=== PATIENT | female | born 1970 | race Caucasian/White ===

== ENCOUNTER 2024-12-14 18:18 | Emergency (ER) | payer BC, SELFPAY ==
[2024-12-14 18:19] VITALS: BP 128/88; PULSE 73; RESP 16; TEMP 36.6; O2SAT 98; BMI 39.9
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
--- NOTE | 2024-12-14 19:05 | RAD_ITS ---
PROCEDURE: KNEE 1 OR 2 VIEWS 12/14/2024 REASON FOR EXAM: PAIN TECHNIQUE: Procedure Code: RADK Modality: DX Procedure: KNEE 1 OR 2 VIEWS COMPARISON: none RAD/Knee 1 or 2 Views IMPRESSION: Question lateral tibial plateau defect/fracture. No dislocations. Mild degenerative changes. No large joint effusion. Moderate diffuse soft tissue edema. no radiographic foreign body. Reading Location: [id number]
[2024-12-14 21:39] VITALS: BP 117/66; PULSE 70; RESP 16; TEMP 36.7; O2SAT 98
== END 2024-12-14 22:02 | disposition home or self-care (01) ==
PROVIDERS: Emergency Provider Emergency Medicine; Visit Provider Emergency Medicine
DX: S82.145A Nondisplaced bicondylar fracture of left tibia, initial encounter for closed fracture (principal); M25.562 Pain in left knee; I10 Essential (primary) hypertension; V09.9XXA Pedestrian injured in unspecified transport accident, initial encounter
CPT/HCPCS: 73560; 99285